=== PATIENT | female | born 1980 | race Caucasian/White ===

== ENCOUNTER → 2017-01-13 | Outpatient (CLI) | payer OTHER ==
--- NOTE | ~2017-01-13 | US98 ---
[facility] A Service of [facility] & [facility] RADIOLOGY TEXT RESULTS PATIENT: DANIEL VEGA LOCATION: [facility] : 84 UNIT #: [id number] AGE: [address]: Kristen Valdez SEX: F ORDER DR: [id number] [facility] [address] [place], [place] [address] [id number] O MR#: [id number] Acc #: [id number] NAME: DANIEL VEGA : 1980 SEX: F STUDY DATE/TIME: 01/13/2017 13:27 UNIT: [facility] ROOM: STUDY DESCRIPTION: US Pelvic Non-OB Complete Attending Physician: Kristen Valdez A.P.R.N. Referring Physician: Kristen Valdez A.P.R.N. Ordering Physician: Kristen Valdez A.P.R.N. Primary Care Physician: Kristen Valdez A.P.R.N. MEDICAL IMAGING REPORT This report is preliminary unless electronic signature is present EXAM Transabdominal transvaginal pelvic ultrasound Date: 01/13/2017 HISTORY A 36-year-old female with diffuse pelvic pain for a couple of months. History of fibroids. Gynecologic cancer in a sister. . Left menstrual period 12/28/2016. Recent missed June 2016, passed naturally. FINDINGS Transabdominal imaging was performed for generalized visualization pelvic structures while transvaginal imaging was performed for more detailed evaluation of the adnexa. Uterus measures approximate 10.3 x 5.1 x 7 cm. Endometrial bilayer thickness is within normal limits, 5 mm. A subserosal fibroid is demonstrated anteriorly and exophytically from the mid uterine body measuring 1.6 x 1.5 x 1.6 cm. Incidental note is made of small cervical nabothian cysts. Echogenic 9 to 10 mm focus in the cervix, thought to represent hemorrhagic or proteinaceous cyst. Nabothian cyst. The left ovary measures 3.1 x 3.5 x 1.6 cm and contains a cyst measuring 2.3 x 0.9 cm. The left ovary demonstrates normal color spectral Doppler flow. The right ovary cannot be visualized either transabdominally or transvaginally. No pelvic free fluid is identified. IMPRESSION [facility]. [facility] A Service of [facility] RADIOLOGY TEXT RESULTS PATIENT: DANIEL VEGA LOCATION: [facility] : 84 UNIT #: [id number] AGE: [address]: Kristen Valdez SEX: F ORDER DR: 1. A 1.6 cm subserosal uterine fibroid. 2. Normal appearance of the endometrium. 3. Cervical nabothian cysts. 4. A 2.3 cm left ovarian cyst. Normal flow to the left ovary. 5. Right ovary cannot be visualized transabdominally or transvaginally. Dictated by... Mis Beck M.D. THIS IS AN ELECTRONICALLY VERIFIED REPORT Mis Beck M.D. at 01/19/2017 8:37 AM LEE/gerardo TD: 01/13/2017 23:33 JOB #: [id number] MEDICAL IMAGING REPORT Page 1 of 1 COPY
== END | disposition home or self-care (01) ==
LOC: CWCC 13:00
DX: D25.9 Leiomyoma of uterus, unspecified (principal); D25.2 Subserosal leiomyoma of uterus; N88.8 Other specified noninflammatory disorders of cervix uteri; N83.202 Unspecified ovarian cyst, left side; E66.9 Obesity, unspecified; Z68.39 Body mass index [BMI] 39.0-39.9, adult; Z30.019 Encounter for initial prescription of contraceptives, unspecified
CPT/HCPCS: 76830; 76856